=== PATIENT | female | born 1965 | race Hispanic/Latino ===

== ENCOUNTER → 2020-08-14 | Day surgery (SDC) | payer OTHER ==
[2020-08-09 13:14] LABS: BASOPHILS % 0.5 % (0.0-1.0); EOSINOPHILS # (AUTO) 0.1 (0.0-0.4); EOSINOPHILS % 0.9 % (0.0-6.0); HEMOGLOBIN 12.4 g/dL (12.0-16.0); LYMPHOCYTES # (AUTO) 3.3 (1.0-3.2); LYMPHOCYTES % 49.5 % (18.0-39.1); MEAN CORPUSCULAR HEMOGLOBIN 32.5 pg (28-32); MEAN CORPUSCULAR HGB CONC 33.5 g/dL (31-35); MEAN CORPUSCULAR VOLUME 97.1 fL (81-99); MONOCYTES # (AUTO) 0.7 (0.2-0.8); MONOCYTES % 9.8 % (4.4-11.3); NEUTROPHILS # (AUTO) 2.6 (2.1-6.9); PLATELET COUNT 197 x10e3/uL (140-360); RED BLOOD COUNT 3.81 x10e6/uL (3.6-5.1)
[2020-08-09 13:47] LABS: ANION GAP 11.8 mmol/L (8-16); CREATININE, SERUM 1.01 mg/dL (0.57-1.11); POTASSIUM 4.8 mmol/L (3.5-5.1)
--- NOTE | 2020-08-09 14:27 | Diagnostic Imaging Report ---
EXAMINATION: CHEST 2 VIEWS INDICATION: Pre-operative COMPARISON: None FINDINGS: LINES/TUBES:None LUNGS:The lungs are well-inflated. No focal consolidation or pulmonary edema. PLEURA:No pleural effusion or pneumothorax. MEDIASTINUM:The cardiomediastinal silhouette appears normal in size and shape. BONES/SOFT TISSUES:No acute osseous injury. ABDOMEN:No free air under the diaphragm. IMPRESSION: No focal pneumonia or pulmonary edema. Signed by: Kingsley Muir MD on 08/09/2020 2:24 PM
[~2020-08-14] MED LIST: BUPIVACAINE HCL 0.5% INJ 30 ML VIAL INJ ONE; CEFAZOLIN SOD 1 GM/NS 50ML 100 ML IV ONE; CEFTRIAXONE SOD 1 GM/NS 50 ML 0 ML IV ONE; CLONAZEPAM0.5 MG PO; DEXAMETHASONE SOD PHOS INJ 4 MG/ML VIAL ONE; DIVALPROEX SOD500 MG PO; FENTANYL CITRATE/PF 100MCG/2 ML INJ ONE; FLUTICASONE; FUROSEMIDE40 MG PO; GENTAMICIN 80MG/NS 100 ML 0 ML IV ONE; LEVOFLOXACIN250 MG PO; LIDOCAINE HCL 2% JELLY 5 ML TUBE ONE; LIDOCAINE HCL 2% LOCAL INJ 5 ML SDV VIAL INJ ONE; MIDAZOLAM HCL 2 MG/2 ML VIAL ONE; MIGRANAL1 ML PO; MOBIC7.5 MG PO; MONTELUKAST SOD10 MG PO; ONDANSETRON HCL INJ 2MG/ML 2ML 2 MG/ML VIAL ONE; PANTOPRAZOLE SO40 MG PO; PAXIL CR25 MG PO; POTASSIUM CHLO10 ME1 PO; PROPOFOL IV EMULSION 10 MG/ML 20 ML VIAL ONE; QUVAR INH; SEVOFLURANE INHAL SOLN 250 ML PEN BTL ONE; ZETIA10 MG PO; ZOLPIDEM TARTRAT5 MG PO; [UNRECOGNIZED DRUG - OTHER] PO
[2020-08-14 09:25] VITALS: BP 137/93
--- NOTE | 2020-08-15 20:18 | Operative Report ---
DATE OF PROCEDURE: 08/14/2020 SURGEON: Ben Esteban MD PREOPERATIVE DIAGNOSES: 1. Left knee lateral meniscus tear. 2. Left knee degenerative joint disease. POSTOPERATIVE DIAGNOSES: 1. Left knee lateral meniscus tear. 2. Left knee degenerative joint disease. OPERATION PROCEDURE PERFORMED: The patient had left knee examined under anesthesia, left knee arthroscopy, left knee partial lateral meniscectomy, left knee chondroplasty of the patella, the trochlea, the medial femoral condyle, the medial tibial plateau, the lateral femoral condyle, and lateral tibial plateau. [employer]LEGE [employer]ASKET[employer]ALL COACH: There was no certified surgical assistant. ANESTHESIA: General endotracheal intubation anesthesia. IV FLUIDS: Per anesthesia record. BRIEF DISCUSSION OF THE PATIENT'S OPERATIVE PROCEDURE: Ms. Javad Tavarez was taken to the operating room and placed in supine position on the operating table. Following induction of general anesthesia as well as endotracheal intubation, the patient's left lower extremity was examined under anesthesia. She was found to have a mild effusion within the knee joint, but otherwise ligamentously stable knee. The patient's lower extremity was prepped and draped in standard surgical fashion. A two-port technique used to provide this patient arthroscopic evaluation of the knee joint. Examination of suprapatellar pouch and medial lateral gutters found no evidence of loose bodies. There was, however, evidence of chondromalacia of the patellar and trochlear surfaces. The scope was advanced into the medial compartment. Examination of the medial compartment demonstrated chondromalacia of the articulating surfaces. The medial meniscus was examined thoroughly and no tear was found. A chondroplasty of the medial femoral condyle and medial tibial plateau performed at this time. Scope was then advanced to the intercondylar notch. The anterior cruciate ligament was identified and found to be intact. The scope was advanced lateral compartment and there was a tear of the lateral meniscus. There was also chondromalacia of the lateral tibial plateau and lateral femoral condyle. A combination of biting forceps and a motorized shaver were used to resect the torn portion of the meniscus. Chondroplasties of the lateral femoral condyle and lateral tibial plateau were performed at this time. Scope was then placed in the suprapatellar pouch and chondroplasties of patellar trochlear was performed. The knee was then deflated with sterile normal saline. Each of the port sites were closed using 4-0 nylon suture. The portal sites as well as the knee itself were injected with 0.5% Marcaine with epinephrine. Sterile dressings were applied. The patient was then awakened and taken to postanesthesia care unit in stable condition. MD LYNNE Camacho/SONA /[id number]
== END | disposition home or self-care (01) ==
LOC: OR 05:32
PROVIDERS: ATTEND Specialist
DX: S83.262A Peripheral tear of lateral meniscus, current injury, left knee, initial encounter (principal); M17.12 Unilateral primary osteoarthritis, left knee; M22.42 Chondromalacia patellae, left knee; J45.909 Unspecified asthma, uncomplicated; K76.0 Fatty (change of) liver, not elsewhere classified; E78.5 Hyperlipidemia, unspecified; I83.90 Asymptomatic varicose veins of unspecified lower extremity; F31.9 Bipolar disorder, unspecified; F29 Unspecified psychosis not due to a substance or known physiological condition; X58.XXXA Exposure to other specified factors, initial encounter; Z01.810 Encounter for preprocedural cardiovascular examination; Z01.818 Encounter for other preprocedural examination; Z01.812 Encounter for preprocedural laboratory examination; Z20.828 Contact with and (suspected) exposure to other viral communicable diseases; Z68.39 Body mass index [BMI] 39.0-39.9, adult; Z85.3 Personal history of malignant neoplasm of breast; Z87.891 Personal history of nicotine dependence
CPT/HCPCS: 29881; 36415; 71046; 80048; 85025; 93005; J0690; J1100; J2001 ×2; J2250; J2405; J2704; J3010; U0002; J0696; J1580

== ENCOUNTER 2022-07-07 16:06 | Emergency (ER) | payer OTHER ==
[~2022-07-07] VITALS: Ht 162.6 cm; Wt 111.1 kg
[~2022-07-07 16:06] MED LIST changes: -BUPIVACAINE HCL 0.5% INJ 30 ML VIAL INJ ONE; -CEFAZOLIN SOD 1 GM/NS 50ML 100 ML IV ONE; -CEFTRIAXONE SOD 1 GM/NS 50 ML 0 ML IV ONE; -DEXAMETHASONE SOD PHOS INJ 4 MG/ML VIAL ONE; -FENTANYL CITRATE/PF 100MCG/2 ML INJ ONE; -GENTAMICIN 80MG/NS 100 ML 0 ML IV ONE; -LIDOCAINE HCL 2% JELLY 5 ML TUBE ONE; -LIDOCAINE HCL 2% LOCAL INJ 5 ML SDV VIAL INJ ONE; -MIDAZOLAM HCL 2 MG/2 ML VIAL ONE; -ONDANSETRON HCL INJ 2MG/ML 2ML 2 MG/ML VIAL ONE; -PROPOFOL IV EMULSION 10 MG/ML 20 ML VIAL ONE; -SEVOFLURANE INHAL SOLN 250 ML PEN BTL ONE
[2022-07-07] MEDS ORDERED: IOPAMIDOL 370 MG/ML 100 ML INFUS..BTL INJ ONE (17:28)
[2022-07-07] MEDS ORDERED: BENZONATATE200 MG PO (18:49)
[2022-07-07] MEDS ORDERED: CEFDINIR300 MG PO (18:49)
[2022-07-07 19:04] VITALS: BP 139/62
== END 2022-07-07 19:09 | disposition home or self-care (01) ==
LOC: FSED 16:26
DX: J02.9 Acute pharyngitis, unspecified (principal); J20.9 Acute bronchitis, unspecified; Z90.49 Acquired absence of other specified parts of digestive tract; Z20.822 Contact with and (suspected) exposure to COVID-19
CPT/HCPCS: 0223U; 36415; 71045; 71275; 80053; 82553; 84484; 85025; 85379; 87400; 93005; 99284; Q9967